=== PATIENT | female | born 1985 | race Two or more races ===

== ENCOUNTER 2025-01-08 00:14 | Emergency (ER) | payer OTHER ==
[~2025-01-08] VITALS: Ht 160 cm; Wt 93.4 kg
[2025-01-08] MEDS ORDERED: CHILDREN'S5 MG/5 M1 PO (02:41)
[2025-01-08] MEDS ORDERED: PEPCID AC20 MG PO (02:41)
[2025-01-08] MEDS ORDERED: METHYLPREDNISOLONE SOD SUCC 125 MG VIAL IM STA (04:13)
[2025-01-08 04:55] LABS: BASO % 0.9 % (0.1-1.2); EOS # 0.18 (0.04-0.54); EOS % 2.4 % (0.7-7.0); LYMPH # 3.14 (1.18-3.74); LYMPH % 41.8 % (19.3-53.1); MEAN PLATELET VOLUME 12.40 fl (9.4-12.4); MONO # 0.26 (0.24-0.82); MONO % 3.5 % (4.7-12.5); NEUT # 3.84 (1.56-6.13); NEUT % 51.1 % (34.0-71.1); RED CELL DISTRIBUTION WIDTH 13.0 % (11.6-14.4)
[2025-01-08 05:11] LABS: BUN CREA RATIO 19.0 (7.0-25.0); CREATININE SERUM 0.52 mg/dL (0.55-1.02); GFR 129.95; GLUCOSE FASTING 128.0 mg/dL (65-100); OSMOLALITY SERUM 278.0 MOSM/KG (275-295)
== END 2025-01-08 07:02 ==
LOC: ER 00:14
PROVIDERS: General Practice
DX: R07.9 Chest pain, unspecified (principal); R20.2 Paresthesia of skin; M19.90 Unspecified osteoarthritis, unspecified site